=== PATIENT | female | born 1980 | race African-American/Black ===

== ENCOUNTER 2016-08-17 06:40 | Inpatient (IN) | payer OTHER ==
[2016-08-15 13:37] VITALS: BMI 33.3
[2016-08-17] MEDS ORDERED: ROPIVACAINE HCL 0.5% 30ML VIAL ONE (07:16)
[2016-08-17] MEDS ORDERED: MIDAZOLAM HCL 2 MG/2 ML SINGLE DOSE VIAL ONE ×3 (07:18→07:51)
[2016-08-17] MEDS ORDERED: LIDOCAINE HCL/PF 2% SDV 5ML VIAL ONE (07:50)
[2016-08-17] MEDS ORDERED: ROCURONIUM BROMIDE 50 MG/5 ML VIAL ONE (07:51)
[2016-08-17] MEDS ORDERED: SUCCINYLCHOLINE CHLORIDE 200 MG/10 ML VIAL ONE (07:51)
[2016-08-17] MEDS ORDERED: PROPOFOL 20 ML ONE (07:51)
[2016-08-17] MEDS ORDERED: ceFAZolin 2 GRAM PREMIX BAG IVPB ONE (08:00)
[2016-08-17] MEDS ORDERED: DESFLURANE GAS 240 ML BOTTLE IH ONE (08:03)
--- NOTE | 2016-08-17 08:05 | HP ---
Admitting History and Physical - Admission Chief Complaint: Pelvic pain / Leiomyoma of the uterus History of Present Illness: 36 yo Para 0, with h/o pelvic pain associated with Leiomyoma of the uterus is Pre op for Abdominal hysterectomy History Source: Patient Limitations to Obtaining History: No Limitations - Past Medical History ...LMP: 02/12/16 ...: No ...Para: 0 - Past Surgical History Past Surgical History: Yes: None - Smoking History Smoking history: Never smoked Have you smoked in the past 12 months: No - Alcohol/Substance Use Hx Alcohol Use: No (rarelt) History of Substance Use: reports: None - Social History Usual Living Arrangement: Yes: Alone History of Recent Travel: No Home Medications - Allergies Allergies/Adverse Reactions: Allergies Allergy/AdvReac Type Severity Reaction Status Date / Time Penicillins Allergy Severe Verified 08/15/16 13:26 shellfish derived Allergy Severe Hives Verified 08/15/16 13:27 - Home Medications Home Medications: Ambulatory Orders Sertraline HCl [Zoloft] 200 mg PO DAILY 08/15/16 Trazodone HCl 50 mg PO HS PRN 08/15/16 Family Disease History - Family Disease History Family History: Unremarkable Review of Systems - Review of Systems Constitutional: reports: No Symptoms Eyes: reports: No Symptoms HENT: reports: No Symptoms Neck: reports: No Symptoms Cardiovascular: reports: No Symptoms Respiratory: reports: No Symptoms Gastrointestinal: reports: No Symptoms Genitourinary: reports: Pain Breasts: reports: No Symptoms Reported Musculoskeletal: reports: No Symptoms Integumentary: reports: No Symptoms Neurological: reports: No Symptoms Endocrine: reports: No Symptoms Hematology/Lymphatic: reports: No Symptoms Psychiatric: reports: No Symptoms Pain Intensity: 4 Physical Examination Vital Signs: Vital Signs Temperature 98.2 F 08/17/16 07:11 Pulse Rate 86 08/17/16 07:11 Respiratory Rate 18 08/17/16 07:11 Blood Pressure 115/78 08/17/16 07:11 O2 Sat by Pulse Oximetry (%) 100 08/17/16 07:10 Constitutional: Yes: Well Nourished Eyes: Yes: Conjunctiva Clear HENT: Yes: Atraumatic Neck: Yes: Supple Cardiovascular: Yes: Regular Rate and Rhythm Respiratory: Yes: Regular, CTA Bilaterally Gastrointestinal: Yes: Normal Bowel Sounds Musculoskeletal: Yes: WNL Extremities: Yes: WNL Neurological: Yes: Alert, Oriented ...Motor Strength: WNL Psychiatric: Yes: Alert, Oriented Problem List - Problems (1) Pelvic pain Code(s): R10.2 - PELVIC AND PERINEAL PAIN (2) Leiomyoma of body of uterus Code(s): D25.9 - LEIOMYOMA OF UTERUS, UNSPECIFIED Qualifiers: Uterine leiomyoma location: intramural Qualified Code(s): D25.1 - Intramural leiomyoma of uterus Assessment/Plan Pelvic pain Leiomyoma of the uterus Pre op for KELLY Consent signed Anesthesia to see patient
--- NOTE | 2016-08-17 08:06 | OP ---
Operative Note - Note: Operative Date: 08/17/16 Pre-Operative Diagnosis: Pelvic pain / Leiomyima of the uterus Operation: Abdominal hysterectomy Findings: Enlarged Myoma of the uterus c/w 20 weeks size Post-Operative Diagnosis: Same as Pre-op Surgeon: Lilia Yi Bottoming Machine Operator: Becky Montes Anesthesia: General Specimens Removed: Uterus Estimated Blood Loss (mls): 500
[2016-08-17] MEDS ORDERED: ceFAZolin SODIUM 1 GM VIAL ONE ×3 (08:29→21:33)
[2016-08-17] MEDS ORDERED: ceFAZolin SODIUM 1 GM VIAL IVPB ONE (08:30)
[2016-08-17] MEDS ORDERED: DEXAMETHASONE SOD PHOSPHATE 4 MG/1 ML VIAL ONE (08:40)
[2016-08-17] MEDS ORDERED: NEOSTIGMINE METHYLSULFATE 0.5 MG/ML - 10 ML MDV ONE (09:50)
[2016-08-17] MEDS ORDERED: GLYCOPYRROLATE 0.2 MG/1 ML VIAL ONE (09:50)
[2016-08-17] MEDS ORDERED: ACETAMINOPHEN 1000 MG/100 ML VIAL (NON FORMULARY) IVPB PRN (09:55)
[2016-08-17] MEDS ORDERED: ACETAMINOPHEN 1000 MG/100 ML VIAL (NON FORMULARY) IVPB ONE (10:15)
[2016-08-17] MEDS ORDERED: ACETAMINOPHEN INJECTION 100 ML IVPB ONE (10:24)
[2016-08-17] MEDS ORDERED: ONDANSETRON 4 MG/2 ML VIAL IVPUSH PRN (10:35)
[2016-08-17] MEDS ORDERED: PROMETHAZINE HCL 25 MG/1 ML VIAL IVPB PRN (10:42)
[2016-08-17] MEDS ORDERED: DEXAMETHASONE SOD PHOSPHATE 4 MG/1 ML VIAL IVPUSH PRN (10:42)
[2016-08-17] MEDS ORDERED: HYDROmorphone *PCA* 10MG/50ML DISP.SYRIN PCA ONE (10:50)
[2016-08-17] MEDS ORDERED: CEFAZOLIN (PRE-DOCKED) 50 ML IVPB SCH (16:00)
[2016-08-17] MEDS ORDERED: CEFAZOLIN 1 GM in DEXTROSE 5%-WATER - 50 ML IVPB SCH (17:50)
[2016-08-17] MEDS ORDERED: DEXTROSE 5%-WATER - 50 ML IVPB ONE ×2 (18:03→21:33)
[2016-08-17] MEDS: LACTATED RINGERS SOLUTION 1,000 ML IV SCH (21:34)
[2016-08-17] MEDS: DEXTROSE 5%-LACTATED RINGERS 1,000 ML IV SCH (21:34)
[2016-08-18] MEDS ORDERED: CEFAZOLIN 1 GM in DEXTROSE 5%-WATER - 50 ML IVPB SCH (01:30)
[2016-08-18] MEDS: HYDROmorphone *PCA* 10MG/50ML DISP.SYRIN PCA SCH ×2 (08:02→19:11)
[2016-08-18] MEDS ORDERED: OXYCODONE/APAP 5/325MG COMBO TABLET PO PRN (08:11)
--- NOTE | 2016-08-18 08:20 | PN ---
Progress Note, Physician Chief Complaint: Post op day 1 History of Present Illness: 36 yo Para o, with pelvic pain associated with Leiomyoma of the uterus is status post KELLY. She's seen and evaluated; she c/o incision pain and body itch. - Current Medication List Current Medications: Active Medications Acetaminophen (Tylenol -) 650 mg PO Q4H PRN PRN Reason: FEVER OR PAIN Dexamethasone Sodium Phosphate (Decadron Injection -) 4 mg IVPUSH ONCE PRN PRN Reason: NAUSEA AND/OR VOMITING Diphenhydramine HCl (Benadryl Injection -) 12.5 mg IVPUSH ONCE PRN PRN Reason: FOR ITCHING Last Admin: 08/18/16 04:57 Dose: 12.5 mg Hydromorphone HCl (Dilaudid Clearing House Clerk -) 0 mg BINDERY CHIEF BINDERY CHIEF CARL PRN Reason: Protocol Stop: 08/24/16 10:42 Last Admin: 08/18/16 08:02 Dose: Not Given Dextrose/Lactated Ringer's (D5-Lr -) 1,000 mls @ 125 mls/hr IV [facility] Last Admin: 08/17/16 21:34 Dose: Not Given Lactated Ringer's (Lactated Ringers Solution) 1,000 mls @ 125 mls/hr IV [facility] Last Admin: 08/17/16 21:34 Dose: Not Given Oxycodone/Acetaminophen (Percocet 5/325 -) 1 combo PO Q4H PRN PRN Reason: PAIN LEVEL 1-5 Promethazine HCl (Phenergan Injection -) 12.5 mg IVPB Q6H PRN PRN Reason: NAUSEA AND/OR VOMITING - Objective Vital Signs: Vital Signs Temperature 98.6 F 08/18/16 06:00 Pulse Rate 88 08/18/16 07:00 Respiratory Rate 20 08/18/16 07:00 Blood Pressure 122/69 08/18/16 07:00 O2 Sat by Pulse Oximetry (%) 99 08/17/16 11:35 Constitutional: Yes: Well Nourished Eyes: Yes: Conjunctiva Clear HENT: Yes: Atraumatic Neck: Yes: Supple, Trachea Midline Cardiovascular: Yes: Regular Rate and Rhythm Respiratory: Yes: Regular, CTA Bilaterally Gastrointestinal: Yes: Hypoactive Bowel Sounds Genitourinary: Yes: Other (Pinzon catheter removed) Breast(s): Yes: WNL Musculoskeletal: Yes: WNL Wound/Incision: Yes: Dressing Dry and Intact Neurological: Yes: Alert, Oriented ...Motor Strength: WNL Psychiatric: Yes: Alert, Oriented Problem List - Problems (1) Pelvic pain Code(s): R10.2 - PELVIC AND PERINEAL PAIN (2) Leiomyoma of body of uterus Code(s): D25.9 - LEIOMYOMA OF UTERUS, UNSPECIFIED Qualifiers: Uterine leiomyoma location: intramural Qualified Code(s): D25.1 - Intramural leiomyoma of uterus Assessment/Plan Status post Abdominal hysterectomy Stable Ambulation D/C Pinzon catheter and BINDERY CHIEF D/C IVF Percocet for pain Benadryl for itching Regular diet Continue Post op care
--- NOTE | 2016-08-18 08:29 | DS ---
Physical Examination Vital Signs: Vital Signs Temperature 98.6 F 08/18/16 06:00 Pulse Rate 88 08/18/16 07:00 Respiratory Rate 20 08/18/16 07:00 Blood Pressure 122/69 08/18/16 07:00 O2 Sat by Pulse Oximetry (%) 99 08/17/16 11:35 Constitutional: Yes: Well Nourished Eyes: Yes: Conjunctiva Clear HENT: Yes: Atraumatic Neck: Yes: Supple, Trachea Midline Cardiovascular: Yes: Regular Rate and Rhythm Respiratory: Yes: Regular, CTA Bilaterally Gastrointestinal: Yes: Normal Bowel Sounds Wound/Incision: Yes: Clean/Dry, Well Approximated, Steri Strips (in place) Neurological: Yes: Alert, Oriented ...Motor Strength: WNL Psychiatric: Yes: Alert, Oriented Discharge Summary Reason For Visit: LEIOMYOMA OF UTERUS Current Active Problems Leiomyoma of body of uterus (Acute) Pelvic pain (Acute) Status post abdominal hysterectomy (Acute) Procedures: Principal: Abdominal hysterectomy Hospital Course: Patient received additional dosage of antibiotic. No blood transfusion required. Condition: Good - Instructions Diet, Activity, Other Instructions: Regular diet No lifting, no driving x 4 weeks Referrals: Lilia Yi MD [Staff Physician] - Disposition: HOME - Home Medications Comprehensive Discharge Medication List: Ambulatory Orders Sertraline HCl [Zoloft] 200 mg PO DAILY 08/15/16 Trazodone HCl 50 mg PO HS PRN 08/15/16
[2016-08-18] MEDS: oxyCODONE HCL 5 MG TABLET PO PRN ×4 (09:01→23:41)
[2016-08-18] MEDS: ACETAMINOPHEN 325 MG TABLET (FP) PO PRN ×4 (09:02→23:44)
[2016-08-18 10:24] LABS: BASOPHIL 0.5 % (0-2.0); EOSINOPHIL 0.5 % (0-4.5); MCH 27.2 pg (25.7-33.7); MCHC 33.1 g/dl (32.0-36.0); MEAN CELL VOLUME 82.3 fl (80-96); MEAN PLT VOLUME 6.7 fl (7.5-11.1); NEUTROPHILS 76.4 % (42.8-82.8); PLATELET COUNT 246 K/MM3 (134-434); RDW 14.3 % (11.6-15.6); WHITE BLOOD COUNT 8.1 K/mm3 (4.0-10.0)
[2016-08-18] MEDS: LACTATED RINGERS SOLUTION 1,000 ML IV SCH ×2 (14:25→21:08)
[2016-08-18] MEDS: DEXTROSE 5%-LACTATED RINGERS 1,000 ML IV SCH (14:26)
[2016-08-18] MEDS ORDERED: SIMETHICONE 80 MG TAB.CHEW (FP) PO PRN (21:39)
[2016-08-19] MEDS: LACTATED RINGERS SOLUTION 1,000 ML IV SCH ×2 (04:48→12:03)
[2016-08-19] MEDS: oxyCODONE HCL 5 MG TABLET PO PRN ×2 (04:58→09:34)
[2016-08-19] MEDS: ACETAMINOPHEN 325 MG TABLET (FP) PO PRN ×2 (05:01→09:34)
[2016-08-19 09:15] VITALS: BP 107/69; PULSE 80; TEMP 98.6
[2016-08-19] MEDS: DEXTROSE 5%-LACTATED RINGERS 1,000 ML IV SCH ×2 (12:02→12:03)
--- NOTE | 2016-08-20 13:22 | PATH ---
Surgical Pathology Report Patient Name: MARYELLEN NGUYEN Med. Rec. #: [id number] /Age/Gender: 1980 (Age: 36) / F Account: [id number] Location: [facility] MED/SURG Taken: 08/17/2016 Received: 08/17/2016 Reported: 08/20/2016 Physicians: Lilia Yi M.D. Specimen(s) Received UTERUS Clinical History Leiomyoma of uterus Final Diagnosis UTERUS, ABDOMINAL HYSTERECTOMY: CERVICAL STUMP: WITHOUT SIGNIFICANT PATHOLOGIC CHANGES. ENDOMETRIUM: SECRETORY. MYOMETRIUM: LEIOMYOMATA WITH FOCAL HYDROPIC AND SYMPLASTIC CHANGES (LARGEST 12.5 CM). UTERINE SEROSA: WITHOUT SIGNIFICANT PATHOLOGIC CHANGES. Electronically Signed Jose C Singh M.D. Gross Description Received in formalin labeled "uterus" is an 880 g supracervically amputated uterus with no attached adnexa. The specimen measures 14 cm from superior to inferior, 12 cm from left to right and 11.5 cm from anterior to posterior. The serosa is moreno-pink with a focal bulging subserosal nodule. The endometrial cavity measures 5.5 cm in length and 1.5 cm from left to right and is distorted by a large bulging intramural nodule. The endometrium is moreno-red and averages 0.2 cm in thickness. The large intramural nodule measures 12.5 cm in greatest dimension. The cut surface of the subserosal and intramural nodules is moreno, firm to rubbery with whorled architecture. There are foci of degeneration within the large intramural nodule. The remaining myometrium is moreno-pink and unremarkable. [employer] sections are submitted in 12 cassettes as follows: 1-cervical stump margin of resection; 5-2-mhpywdkyscaulp; 6-subserosal nodule; 0-18-ubagrntx of intramural nodule. DL/[id number]
== END 2016-08-19 13:45 | disposition home or self-care (01) | DRG 743 ==
LOC: JASUSAT 06:40 → J8W 12:28 → JASUSAT 12:29 → J8W 12:29
PROVIDERS: ADMIT Obstetrics & Gynecology; ATTEND Obstetrics & Gynecology
PROC: 0UTC0ZZ Resection of Cervix, Open Approach (ICD-10-PCS; 2016-08-17)
PROC: 0UT90ZZ Resection of Uterus, Open Approach (ICD-10-PCS; principal; 2016-08-17 08:00)
DX: D25.9 Leiomyoma of uterus, unspecified (principal); R10.2 Pelvic and perineal pain
CPT/HCPCS: 36415; 84703; 85025; 86850; 86900; 86901; 88307-TC; 94760